=== PATIENT | female | born 1990 | race African-American/Black ===

== ENCOUNTER 2016-03-27 15:28 | Emergency (ER) | payer SELFPAY ==
[~2016-03-27 15:28] MED LIST: ACYC200C66 PO; DIFL150T PO
[2016-03-27 15:30] VITALS: BP 116/62; PULSE 78; RESP 16; TEMP 98; O2SAT 97
== END 2016-03-27 18:50 | disposition left against medical advice (07) ==
LOC: NED 15:28
DX: R55 Syncope and collapse (principal)
CPT/HCPCS: 99281

== ENCOUNTER 2016-11-15 22:49 | Emergency (ER) | payer SELFPAY ==
[~2016-11-15] VITALS: Ht 167.6 cm; Wt 58.0 kg
[2016-11-15 22:50] VITALS: BP 149/89; PULSE 99; RESP 15; TEMP 99; O2SAT 98
--- NOTE | 2016-11-15 23:47 | PD ---
HPI Chief Complaint: Back/ Neck Pain or Injury Time Seen by Provider: 23:32 Travel History International Travel<30 days: No Contact w/Intl Traveler<30days: No Traveled to known affect area: No History of Present Illness HPI 26-year-old black female presents to emergency department with complains of bilateral lower back and flank pain for the past week. She states that she has been having pain of this type on-and-off now for several months. She states that she was diagnosed with a urinary tract infection in the past. She states that this feels similar in nature. She has had some increased urinary frequency , dark urine and some frothy urine. She denies any dysuria. No vaginal discharge or abnormal bleeding. She denies any abdominal pain. She states that she does have some lower pelvic pressure. She denies any numbness, tingling or weakness. She states that she has lost her insurance and does not have a primary care doctor or a bookkeepers supervisor. She applied for [facility] at [facility]. [facility] Past Medical History Medical History: Denies Significant Hx Cancer: Yes (UNSURE) Diminished Hearing: No Immunizations Current: Yes Tetanus Vaccination: Unknown Influenza Vaccination: No ?: Unknown LMP: 10/25/2016 Past Surgical History Other Surgery: Yes (BREAST LUMP REMOVAL) Social History Alcohol Use: Yes (occ) Tobacco Use: No Substance Use: Yes (marijuana once a week ) Allergies-Medications (Allergen,Severity, Reaction): Coded Allergies: Sulfa (Sulfonamide Antibiotics) (Unverified Allergy, Severe, Anaphylaxis, 11/06/16) aspirin (Unverified Allergy, Unknown, 11/06/16) Reported Meds & Prescriptions Reported Meds & Active Scripts Active No Active Prescriptions or Reported Medications Review of Systems Except as stated in HPI: all other systems reviewed are Neg Physical Exam Narrative GENERAL: Well-developed, well-nourished in no acute distress. Nontoxic appearing. HEAD: Normocephalic, atraumatic. EYES: Pupils equal round and reactive. Extraocular motions intact. No scleral icterus. No injection or drainage. ENT: TMs clear without erythema. The external auditory canals clear. Nose: clear . Posterior pharynx is pink and moist. No tonsillar edema or exudate. Uvula midline. Airway patent. NECK: Trachea midline.Supple, nontender, moves head freely. No central bony tenderness or spasm. CARDIOVASCULAR: Regular rate and rhythm without murmurs, gallops, or rubs. RESPIRATORY: Clear to auscultation. Breath sounds equal bilaterally. No wheezes , rales, or rhonchi. GASTROINTESTINAL: Abdomen soft, non-tender, nondistended. No hepato-splenomegaly , or palpable masses. No guarding. EXTREMITIES: No clubbing, cyanosis, or edema. No joint tenderness, effusion, or edema noted. BACK: Bilateral lower lumbar tenderness without deformity or crepitance. No flank tenderness. Data Data Last Documented VS Vital Signs Date Time Temp Pulse Resp B/P (MAP) Pulse Ox O2 Delivery O2 Flow Rate FiO2 11/15/16 22:50 99.0 99 15 149/89 (109) 98 Room Air Orders Orders Urinalysis - C+S If Indicated (11/15/16 23:38) Ed Urine Pregnancytest Poc (11/15/16 23:38) Labs Laboratory Tests Test 11/15/16 23:14 Urine Color YELLOW Urine Turbidity CLEAR Urine pH 6.0 Urine Specific [place] 1.012 Urine Protein NEG mg/dL Urine Glucose (UA) NEG mg/dL Urine Ketones NEG mg/dL Urine Occult Blood NEG Urine Nitrite NEG Urine Bilirubin NEG Urine Urobilinogen LESS THAN 2.0 MG/DL Urine Leukocyte Esterase NEG Urine RBC LESS THAN 1 /hpf Urine WBC 1 /hpf Urine Squamous Epithelial Cells 2 /hpf Microscopic Urinalysis Comment CULT NOT INDICATED MDM Medical Decision Making Medical Screen Exam Complete: Yes Emergency Medical Condition: Yes Medical Record Reviewed: Yes Interpretation(s) HCG negative Laboratory Tests Test 11/15/16 23:14 Urine Color YELLOW Urine Turbidity CLEAR Urine pH 6.0 Urine Specific [place] 1.012 Urine Protein NEG mg/dL Urine Glucose (UA) NEG mg/dL Urine Ketones NEG mg/dL Urine Occult Blood NEG Urine Nitrite NEG Urine Bilirubin NEG Urine Urobilinogen LESS THAN 2.0 MG/DL Urine Leukocyte Esterase NEG Urine RBC LESS THAN 1 /hpf Urine WBC 1 /hpf Urine Squamous Epithelial Cells 2 /hpf Microscopic Urinalysis Comment CULT NOT INDICATED Differential Diagnosis MDM: High Differential diagnoses: AAA,Fracture, sprain, strain, HNP, UTI, nephrolithiasis , ureterolithiasis Narrative Course HCG is negative. UA is negative. The patient states that she is not known to be allergic to aspirin. She states that her mother is allergic and she does have never taken it although she can take Tylenol and ibuprofen. The patient is given Naprosyn 500 mg of Flexeril 10 mg by mouth discharge. The patient will be treated for myofascial back pain. Diagnosis Primary Impression: Back pain Qualified Codes: M54.5 - Low back pain Patient Instructions: General Instructions Additional Instructions: Rest. Ice for the next 3 days followed by heat . Flexeril and Naprosyn. Follow-up with a primary care doctor in one week. Return to the ER for emergencies. Med/Other Pt SpecificInfo: Prescription(s) given Scripts No Active Prescriptions or Reported Meds Disposition: DISCHARGE HOME Condition: Stable Kenny Gonzalez Nov 15, 2016 23:47
[2016-11-16 00:02] LABS: BLOOD, URINE NEG (NEG); GLUCOSE,URINE NEG (NEG); KETONE, URINE NEG (NEG); NITRITE,URINE NEG (NEG); SQUAMOUS EPITHELIAL CELL URINE 2 /hpf (0-5); URINE COLOR YELLOW (YELLW/STRAW)
[2016-11-16 00:15] LABS: COMMENT (UR) CULT NOT INDICATED; CULTURE IF INDICATED CULT NOT INDICATED
[2016-11-16] MEDS ORDERED: NAPR500 PO (01:27)
[2016-11-16] MEDS ORDERED: CYCL1TAB29 PO (01:27)
[2016-11-16] MEDS ORDERED: CYCLOBENZAPRINE HCL 10 MG TAB PO ONE (01:30)
[2016-11-16] MEDS ORDERED: NAPROXEN 500 MG TAB PO ONE (01:30)
== END 2016-11-16 01:35 | disposition home or self-care (01) ==
LOC: NEPD 22:49
DX: M54.9 Dorsalgia, unspecified (principal); R35.0 Frequency of micturition; Z88.2 Allergy status to sulfonamides; Z88.6 Allergy status to analgesic agent
CPT/HCPCS: 81001; 84703; 99284

== ENCOUNTER 2016-12-20 19:35 | Emergency (ER) | payer SELFPAY ==
[~2016-12-20] VITALS: Ht 167.6 cm; Wt 55.6 kg
[~2016-12-20 19:35] MED LIST changes: -ACYC200C66 PO; +CYCL1TAB29 PO; -DIFL150T PO; +NAPR500 PO
[2016-12-20 19:36] VITALS: BP 130/61; PULSE 90; RESP 17; TEMP 98.5
[2016-12-20] MEDS ORDERED: MULTTAB67 PO (22:23)
[2016-12-20 22:53] LABS: BLOOD, URINE NEG (NEG); COMMENT (UR) CULTURE INDICATED; CULTURE IF INDICATED CULTURE INDICATED; GLUCOSE,URINE NEG (NEG); KETONE, URINE NEG (NEG); MUCUS URINE FEW /lpf (OCC); NITRITE,URINE NEG (NEG); SQUAMOUS EPITHELIAL CELL URINE 1 /hpf (0-5); URINE COLOR YELLOW (YELLW/STRAW)
--- NOTE | 2016-12-20 22:56 | PD ---
HPI Chief Complaint: Abdominal Pain Time Seen by Provider: 22:13 Travel History International Travel<30 days: No Contact w/Intl Traveler<30days: No Traveled to known affect area: No History of Present Illness HPI patient is a 26 year old [place] female presenting to the ER with LLQ abdominal pain. The patient states that the pain is a 10/10 at times. It is sharp and it does not radiate. The patient has a history of ovarian cyst that was diagnosed in June 2015 via U/S. At that time the patient had her IUD taken out. The patient has informed me that her and her have been trying to conceive since June of 2015. Also, she reveals spotting and her cycle being two days shorter than usual. She states that her breasts feel gómez. She denies nausea, vomiting, fever, visual changes, headaches, SOB, hematochezia, hematemesis, and melena. PMH: Ovarian cyst, Herpes (diagnosed 1 year ago) Social: Denies alcohol and tobacco use, States she smokes marijuana three times a week, denies other illicit drug use and recent travel outside the country Family: States her grandmother had ovarian cancer, Meds: vitamins, supplement for stress PFSH Past Medical History Medical History: Denies Significant Hx Cancer: Yes Diminished Hearing: No Immunizations Current: Yes Tetanus Vaccination: > 5 Years Influenza Vaccination: No ?: Unknown LMP: 12/18/18? Past Surgical History Thoracic Surgery: Yes (BREAST LUMP REMOVAL left) Other Surgery: Yes (BREAST LUMP REMOVAL) Social History Alcohol Use: Yes (occ) Tobacco Use: No Substance Use: Yes (marijuana once a week ) Allergies-Medications (Allergen,Severity, Reaction): Coded Allergies: Sulfa (Sulfonamide Antibiotics) (Unverified Allergy, Severe, Anaphylaxis, 11/06/16) aspirin (Unverified Allergy, Unknown, 11/06/16) Reported Meds & Prescriptions Reported Meds & Active Scripts Active Keflex (Cephalexin) 500 Mg Cap 500 Mg PO Q6H 5 Days Reported Multiple Vitamin 1 Tab 1 Tab PO DAILY Review of Systems Except as stated in HPI: all other systems reviewed are Neg Physical Exam Narrative GENERAL: Well-developed well-nourished, thin In no acute distress SKIN: Warm and dry. HEAD: Atraumatic. Normocephalic. EYES: Pupils equal and round. No scleral icterus. No injection or drainage. ENT: No nasal bleeding or discharge. Mucous membranes pink and moist. NECK: Trachea midline. No JVD. CARDIOVASCULAR: Regular rate and rhythm. RESPIRATORY: No accessory muscle use. Clear to auscultation. Breath sounds equal bilaterally. GASTROINTESTINAL: Abdomen tender in suprapubic region. Hepatic and splenic margins not palpable. No rebound or guarding. GENITOURINARY: Exam was performed with female nurse chef french present all times. Grossly normal external genitalia, no discharge, no cervical friability , no bimanual tenderness. Adnexa nonpalpable. MUSCULOSKELETAL: Extremities without clubbing, cyanosis, or edema. No obvious deformities. NEUROLOGICAL: Awake and alert. No obvious cranial nerve deficits. Motor grossly within normal limits. Five out of 5 muscle strength in the arms and legs. Normal speech. PSYCHIATRIC: Appropriate mood and affect; insight and judgment normal. Data Data Last Documented VS Vital Signs Date Time Temp Pulse Resp B/P (MAP) Pulse Ox O2 Delivery O2 Flow Rate FiO2 12/21/16 00:50 12/20/16 19:36 98.5 90 17 Room Air Orders Orders Urinalysis - C+S If Indicated (12/20/16 22:14) Ed Urine Pregnancytest Poc (12/20/16 22:14) Complete Blood Count With Diff (12/20/16 22:46) Wet Prep Profile (12/20/16 22:46) Gc And Chlamydia Pcr (12/20/16 22:46) Urine Culture (12/20/16 22:20) Mandatory Outpatient Referral (12/21/16 02:00) Labs Laboratory Tests Test 12/20/16 22:20 12/20/16 23:18 12/21/16 00:21 12/21/16 00:24 Urine Color YELLOW Urine Turbidity CLEAR Urine pH 6.0 Urine Specific [place] 1.011 Urine Protein NEG mg/dL Urine Glucose (UA) NEG mg/dL Urine Ketones NEG mg/dL Urine Occult Blood NEG Urine Nitrite NEG Urine Bilirubin NEG Urine Urobilinogen LESS THAN 2.0 MG/DL Urine Leukocyte Esterase MOD Urine RBC 1 /hpf Urine WBC 30 /hpf Urine Squamous Epithelial Cells 1 /hpf Urine Mucus FEW /lpf Microscopic Urinalysis Comment CULTURE INDICATED White Blood Count 9.4 TH/MM3 Red Blood Count 5.03 MIL/MM3 Hemoglobin 13.8 GM/DL Hematocrit 42.4 % Mean Corpuscular Volume 84.2 FL Mean Corpuscular Hemoglobin 27.5 PG Mean Corpuscular Hemoglobin Concent 32.6 % Red Cell Distribution Width 13.9 % Platelet Count 408 TH/MM3 Mean Platelet Volume 7.9 FL Neutrophils (%) (Auto) 48.4 % Lymphocytes (%) (Auto) 40.8 % Monocytes (%) (Auto) 7.6 % Eosinophils (%) (Auto) 2.4 % Basophils (%) (Auto) 0.8 % Neutrophils # (Auto) 4.6 TH/MM3 Lymphocytes # (Auto) 3.8 TH/MM3 Monocytes # (Auto) 0.7 TH/MM3 Eosinophils # (Auto) 0.2 TH/MM3 Basophils # (Auto) 0.1 TH/MM3 CBC Comment DIFF FINAL Differential Comment MDM Medical Decision Making Medical Screen Exam Complete: Yes Emergency Medical Condition: Yes Differential Diagnosis , ectopic unlikely, torsion unlikely, endometriosis, Narrative Course Patient roomed in emergency department, she appears well in no distress, offered pain medicine and declined. Patient states that her pain feels like is more on the left however does appear to be suprapubic on examination. Labs do show significant pyuria which could be consistent with urinary tract infection no discharge was seen on her exam. She hasn't had any dysuria but this could be the cause of her symptoms given the suprapubic midline tenderness. Her CBC is reassuring, discussed with the patient will place on empiric antibiotics and need for follow-up with a primary care physician and INSTRUMENT AND ELECTRICAL TECHNICIAN. Mandatory referral was placed. At this time I do not think any advanced imaging is indicated. My index of suspicion for torsion is extremely low. She stable for discharge. Diagnosis Primary Impression: Pelvic pain in female Additional Impression: Urinary tract infection Qualified Codes: N30.00 - Acute cystitis without hematuria Med/Other Pt SpecificInfo: Prescription(s) given Scripts Cephalexin (Keflex) 500 Mg Cap 500 MG PO Q6H for Infection for 5 Days, #20 CAP 0 Refills Prov: Holger Angela MD 12/21/16 Disposition: 01 DISCHARGE HOME Condition: Stable Holger Angela MD Dec 20, 2016 22:56
[2016-12-20 23:28] LABS: AUTOMATED NEUTROPHIL # 4.6 TH/MM3 (1.8-7.7); BASOPHIL # 0.1 TH/MM3 (0-0.2); BASOPHIL % 0.8 % (0.0-2.0); EOSINOPHIL # 0.2 TH/MM3 (0-0.4); EOSINOPHIL % 2.4 % (0.0-4.0); HEMATOCRIT 42.4 % (35.0-46.0); HEMO FLAGS DIFF FINAL; LYMPH % 40.8 % (9.0-44.0); LYMPHOCYTE # 3.8 TH/MM3 (1.0-4.8); MEAN CELL VOLUME 84.2 FL (80.0-100.0); MEAN CORPUSCULAR HEMOGLOBIN 27.5 PG (27.0-34.0); MEAN CORPUSCULAR HGB CONC 32.6 % (32.0-36.0); MONO % 7.6 % (0.0-8.0); NEUT % 48.4 % (16.0-70.0); PLATELET COUNT 408 TH/MM3 (150-450); RED BLOOD COUNT 5.03 MIL/MM3 (4.00-5.30); RED CELL DISTRIBUTION WIDTH 13.9 % (11.6-17.2); WHITE BLOOD COUNT 9.4 TH/MM3 (4.0-11.0)
[2016-12-21] MEDS ORDERED: CEPH-460 PO (00:34)
[2016-12-21 04:42] LABS: CHLAMYDIA PCR NOT DETECTED (NOT DETECT); NEISSERIA PCR NOT DETECTED (NOT DETECT)
== END 2016-12-21 00:53 | disposition home or self-care (01) ==
LOC: NEPD 19:35
DX: R10.2 Pelvic and perineal pain (principal); N39.0 Urinary tract infection, site not specified; B95.7 Other staphylococcus as the cause of diseases classified elsewhere; Z88.2 Allergy status to sulfonamides; Z88.6 Allergy status to analgesic agent
CPT/HCPCS: 81001; 84703; 85025; 86403; 87077; 87086; 87186; 87491; 87591; 99283

== ENCOUNTER 2017-02-11 16:55 | Emergency (ER) | payer SELFPAY ==
[~2017-02-11] VITALS: Ht 167.6 cm; Wt 52.5 kg
[2017-02-11 16:55] VITALS: BP 135/60; PULSE 100; RESP 18; TEMP 98.9; O2SAT 99
[~2017-02-11 16:55] MED LIST changes: +CEPH-460 PO; -CYCL1TAB29 PO; +MULTTAB67 PO; -NAPR500 PO
== END 2017-02-11 18:02 | disposition left against medical advice (07) ==
LOC: NED 16:55
DX: J11.1 Influenza due to unidentified influenza virus with other respiratory manifestations (principal); Z53.21 Procedure and treatment not carried out due to patient leaving prior to being seen by health care provider
CPT/HCPCS: 99281

== ENCOUNTER 2017-06-26 10:02 | Emergency (ER) | payer SELFPAY ==
[2017-06-26 10:10] VITALS: BP 142/63; PULSE 95; RESP 16; TEMP 98.9; O2SAT 100
--- NOTE | 2017-06-26 12:11 | PD ---
HPI Chief Complaint: Eye Problems/Injury Time Seen by Provider: 12:05 Travel History International Travel<30 days: No Contact w/Intl Traveler<30days: No Traveled to known affect area: No History of Present Illness HPI 26-year-old female presents to emergency department with concern of pinkeye in her left eye since last night. Reports her eye is itchy and burning. Woke up this morning with her eye crusted shut. Reports purulent drainage. Denies change in vision, fever, vomiting. No others with similar symptoms. Denies eye pain. Denies eye trauma or foreign body. Says her eye feels heavy. Has tried flushing it with saline. Symptoms are mild in severity. No known aggravating or relieving factors. No primary care provider. Denies significant past medical history. Allergies to sulfa and aspirin. Has no other medical complaints. No other modifying factors or associated signs and symptoms. PFSH Past Medical History Cancer: Yes Diminished Hearing: No Immunizations Current: Yes Past Surgical History Thoracic Surgery: Yes (BREAST LUMP REMOVAL left) Other Surgery: Yes (BREAST LUMP REMOVAL) Social History Alcohol Use: Yes (occ) Tobacco Use: No Substance Use: Yes (marijuana once a week ) Allergies-Medications (Allergen,Severity, Reaction): Coded Allergies: Sulfa (Sulfonamide Antibiotics) (Unverified Allergy, Severe, Anaphylaxis, 02/11/17) aspirin (Unverified Allergy, Unknown, 02/11/17) Reported Meds & Prescriptions Reported Meds & Active Scripts Active Erythromycin Opth Oint 5 Mg/Gm Oint 1 Applic LEFT EYE QID 7 Days Keflex (Cephalexin) 500 Mg Cap 500 Mg PO Q6H 5 Days Reported Multiple Vitamin 1 Tab 1 Tab PO DAILY Review of Systems Except as stated in HPI: all other systems reviewed are Neg Physical Exam Narrative GENERAL: Well-nourished, well-developed black patient, in no acute distress; afebrile, nontoxic-appearing SKIN: Warm and dry. HEAD: Atraumatic. Normocephalic. EYES: Pupils equal and round at 3 mm with brisk reaction. PERRLA. EOMI. left lid eversion with no foreign body noted. Left eye with mild scleral erythema and without lid edema. No orbital tenderness, erythema or cellulitis. Left eye without photophobia. No consensual photophobia. No scleral icterus. No drainage noted. ENT: Mucosa pink and moist. Airway patent. EARS: Bilateral pinnae and external canals appear within normal limits. NECK: Trachea midline. No lymphadenopathy. CARDIOVASCULAR: Regular rate. RESPIRATORY: No accessory muscle use. GASTROINTESTINAL: Flat. NEUROLOGICAL: Awake and alert. Oriented 3. No obvious cranial nerve deficits. Motor grossly within normal limits. Normal speech. PSYCHIATRIC: Appropriate mood and affect; insight and judgment normal. Data Data Last Documented VS Vital Signs Date Time Temp Pulse Resp B/P (MAP) Pulse Ox O2 Delivery O2 Flow Rate FiO2 06/26/17 10:10 98.9 95 16 142/63 (89) 100 Orders Orders Ed Discharge Order (06/26/17 12:16) MDM Medical Decision Making Medical Screen Exam Complete: Yes Emergency Medical Condition: Yes Medical Record Reviewed: Yes Differential Diagnosis Allergic conjunctivitis, bacterial conjunctivitis, viral conjunctivitis Narrative Course 26-year-old female with left eye conjunctivitis. Erythromycin ophthalmologic ointment prescribed for home. Instructed patient to follow up with primary care provider. Patient verbalizes understanding and agreement with treatment plan. Patient is medically cleared and stable for discharge. Discussed reasons to return to the emergency department. Patient agrees with treatment plan. The patients vital signs are stable and the patient is stable for outpatient follow-up and treatment. Patient discharged home, stable and in no acute distress. Diagnosis Primary Impression: Conjunctivitis of left eye Qualified Codes: H10.9 - Unspecified conjunctivitis Referrals: Primary Care Physician Patient Instructions: Conjunctivitis (ED), General Instructions Departure Forms: Tests/Procedures, Work Release Enter return to work date: Jun 27, 2017 Additional Instructions: Conjunctivitis is contagious Use antibiotic eye drops as prescribed Apply warm or cool compresses to both eyes for a few minutes several times daily to minimize irritation Avoid triggers, such as allergens, that may irritate your eyes Wash your hands frequently Do not share washcloths, towels, pillows, or any other material that has touched your eyes with any other household members Follow-up with your primary care provider Follow-up with ophthalmology as needed Return to the emergency department immediately with worsening of symptoms Med/Other Pt SpecificInfo: Prescription(s) given Scripts Erythromycin Opth Oint (Erythromycin Opth Oint) 5 Mg/Gm Oint 1 APPLIC LEFT EYE QID for Infection for 7 Days, #1 TUBE 0 Refills Prov: Nata Alvarenga 06/26/17 Disposition: 01 DISCHARGE HOME Condition: Stable Nata Alvarenga Jun 26, 2017 12:11
[2017-06-26] MEDS ORDERED: ERYTOIN10 LEFT EYE (12:16)
== END 2017-06-26 12:23 | disposition home or self-care (01) ==
LOC: NEPK 10:02
DX: H10.9 Unspecified conjunctivitis (principal); F12.90 Cannabis use, unspecified, uncomplicated
CPT/HCPCS: 99283